=== PATIENT | female | born 1945 | race Native Hawaiian/Other Pacific Islander ===

== ENCOUNTER 2022-04-04 18:53 | Emergency (ER) | payer MEDICARE, OTHER ==
[~2022-04-04] VITALS: Ht 152.4 cm; Wt 70.5 kg
[2022-04-04] MEDS ORDERED: HYDROCODONE/ACETAMINOPHEN 5-325 MG TABLET PO ONE (20:00)
[2022-04-04 20:43] LABS: ANION GAP 14 mmol/L (8-16); CALCIUM, TOTAL 10.3 mg/dL (8.8-10.5); CARBON DIOXIDE 23 mmol/L (22-29); CHLORIDE 95 mmol/L (98-107); CREATININE 1.19 mg/dL (0.60-1.30); GLUCOSE,RANDOM 183 mg/dL (70-110); SODIUM SERUM 132 mmol/L (136-145); UREA NITROGEN, BLOOD 17 mg/dL (7-18)
[2022-04-04 20:46] LABS: GLOMERULAR FILTR. RATE CALC 44 mL/min (>60)
[2022-04-04 20:49] LABS: ALANINE AMINOTRANSFERASE 37 U/L (12-78); ALBUMIN 4.5 g/dL (3.4-5.0); ALKALINE PHOSPHATASE 85 U/L (46-116); ASPARTATE AMINOTRANSFERASE 34 U/L (15-37); BILIRUBIN,TOTAL 0.5 mg/dL (0.1-1.0); TOTAL PROTEIN, SERUM 8.8 g/dL (6.4-8.2)
[2022-04-04 21:10] LABS: BASOPHILS % (AUTO) 0.5 % (0.0-2.0); HEMATOCRIT 38.9 % (36-46); HEMOGLOBIN 13.1 g/dL (12.0-16.0); LYMPHOCYTES # (AUTO) 1.8 K/uL (1.0-4.8); LYMPHOCYTES % (AUTO) 19.1 % (22.0-44.0); MEAN CORPUSCULAR HGB CONC 33.7 G/dL (31.0-37.0); MEAN CORPUSCULAR VOLUME 92 fL (80-100); MONOCYTES # (AUTO) 0.4 K/uL (0.1-1.0); MONOCYTES % (AUTO) 4.7 % (2.0-9.0); NEUTROPHILS # (AUTO) 6.9 K/uL (1.8-7.7); NEUTROPHILS % (AUTO) 74.7 % (40.0-70.0); PLATELET COUNT (AUTO) 284 K/uL (150-450); RED BLOOD CELL COUNT(AUTO) 4.24 MIL/uL (4.00-5.20); RED CELL DISTRIBUTION WIDTH 13.8 % (11.5-14.5)
[2022-04-04 21:49] LABS: AMPHET/METH SCREEN,URINE NEGATIVE (NEGATIVE); BARBITURATE SCREEN, URINE NEGATIVE (NEGATIVE); BENZODIAZEPINES SCREEN,URINE NEGATIVE (NEGATIVE); CANNABINOID SCREEN,URINE NEGATIVE (NEGATIVE); COCAINE SCREEN,URINE NEGATIVE (NEGATIVE); METHADONE SCREEN, URINE NEGATIVE (NEGATIVE); OPIATE SCREEN,URINE NEGATIVE (NEGATIVE); PHENCYCLIDINE SCREEN,URINE NEGATIVE (NEGATIVE)
[2022-04-04] MEDS ORDERED: METOPROLOL SUCCINATE 25 MG ER TABLET PO ONE (23:30)
[2022-04-05] MEDS ORDERED: DICL100G51 TP (00:25)
[2022-04-05 00:26] VITALS: BP 148/98
[2022-04-05] MEDS ORDERED: ACETAMINOPHEN 325 MG TABLET PO ONE (00:30)
[2022-04-05] MEDS ORDERED: TRAM50TA4 PO (22:06)
== END 2022-04-05 00:33 | disposition home or self-care (01) ==
LOC: EMS 18:53
DX: F32.A Depression, unspecified (principal); M19.90 Unspecified osteoarthritis, unspecified site; E11.9 Type 2 diabetes mellitus without complications
CPT/HCPCS: 99285; 80053; 85025; 36415; 73562; 80307; G0480

== ENCOUNTER 2022-04-05 18:04 | Emergency (ER) | payer MEDICARE, OTHER ==
[~2022-04-05] VITALS: Ht 152.4 cm; Wt 59.1 kg
[~2022-04-05 18:04] MED LIST: DICL100G51 TP
[2022-04-05] MEDS ORDERED: TraMADol HCL 50 MG TABLET PO ONE (21:45)
[2022-04-05] MEDS ORDERED: TRAM50TA4 PO (22:06)
[2022-04-05 22:33] VITALS: BP 153/89
== END 2022-04-06 00:31 | disposition home or self-care (01) ==
LOC: EMS 18:19
DX: M17.0 Bilateral primary osteoarthritis of knee (principal); G89.29 Other chronic pain; F41.9 Anxiety disorder, unspecified; E11.9 Type 2 diabetes mellitus without complications; Z91.040 Latex allergy status; Z88.8 Allergy status to other drugs, medicaments and biological substances
CPT/HCPCS: 99283

== ENCOUNTER 2022-06-11 14:49 | Emergency (ER) | payer MEDICARE, OTHER ==
[~2022-06-11] VITALS: Ht 142.2 cm; Wt 68.2 kg
[~2022-06-11 14:49] MED LIST changes: +TRAM50TA4 PO
[2022-06-11 15:03] VITALS: BP 157/90
[2022-06-11] MEDS ORDERED: METF-1211 PO (15:03)
[2022-06-11] MEDS ORDERED: ACET-3385 PO (15:25)
[2022-06-11] MEDS ORDERED: ACETAMINOPHEN 500 MG TABLET PO ONE (15:30)
[2022-06-11] MEDS ORDERED: ATOR40TA28 PO (20:07)
[2022-06-11] MEDS ORDERED: OXYB5TAB20 PO (20:07)
[2022-06-11] MEDS ORDERED: PARO-38 PO (20:07)
[2022-06-11] MEDS ORDERED: LORA-999 PO (20:07)
[2022-06-11] MEDS ORDERED: BUSP10TA23 PO (20:07)
[2022-06-11] MEDS ORDERED: ARIP15TA27 PO (20:07)
[2022-06-11] MEDS ORDERED: NAPR220T57 PO (22:45)
== END 2022-06-11 15:45 | disposition home or self-care (01) ==
LOC: EMS 15:05
DX: M25.562 Pain in left knee (principal); M25.561 Pain in right knee; M19.90 Unspecified osteoarthritis, unspecified site; E11.9 Type 2 diabetes mellitus without complications; I10 Essential (primary) hypertension; Z88.8 Allergy status to other drugs, medicaments and biological substances; Z91.040 Latex allergy status
CPT/HCPCS: 82962; 99282; 99283

== ENCOUNTER 2022-06-11 19:12 | Emergency (ER) | payer MEDICARE, OTHER ==
[~2022-06-11] VITALS: Ht 149.9 cm; Wt 68.2 kg
[~2022-06-11 19:12] MED LIST changes: +ACET-3385 PO; +METF-1211 PO
[2022-06-11] MEDS ORDERED: SODIUM CHLORIDE 0.9% 500 ML IV ONE ×2 (19:45→20:45)
[2022-06-11 19:51] LABS: GLUCOMETER DEV NAME(LOC) ERT.5; GLUCOSE,POINT OF CARE 176 MG/DL (70-110)
[2022-06-11 20:05] LABS: BASOPHILS % (AUTO) 0.3 % (0.0-2.0); EOSINOPHILS % (AUTO) 0.2 % (1.0-6.0); HEMOGLOBIN 11.7 g/dL (12.0-16.0); LYMPHOCYTES # (AUTO) 1.9 K/uL (1.0-4.8); LYMPHOCYTES % (AUTO) 14.9 % (22.0-44.0); MEAN CORPUSCULAR HEMOGLOBIN 31.2 pg (26.0-34.0); MEAN CORPUSCULAR HGB CONC 32.4 G/dL (31.0-37.0); MEAN CORPUSCULAR VOLUME 96 fL (80-100); MONOCYTES # (AUTO) 0.6 K/uL (0.1-1.0); MONOCYTES % (AUTO) 4.4 % (2.0-9.0); NEUTROPHILS # (AUTO) 10.2 K/uL (1.8-7.7); NEUTROPHILS % (AUTO) 80.2 % (40.0-70.0); PLATELET COUNT (AUTO) 309 K/uL (150-450); RED BLOOD CELL COUNT(AUTO) 3.75 MIL/uL (4.00-5.20); RED CELL DISTRIBUTION WIDTH 14.5 % (11.5-14.5)
[2022-06-11] MEDS ORDERED: LORA-999 PO (20:07)
[2022-06-11] MEDS ORDERED: OXYB5TAB20 PO (20:07)
[2022-06-11] MEDS ORDERED: ARIP15TA27 PO (20:07)
[2022-06-11] MEDS ORDERED: PARO-38 PO (20:07)
[2022-06-11] MEDS ORDERED: BUSP10TA23 PO (20:07)
[2022-06-11] MEDS ORDERED: ATOR40TA28 PO (20:07)
[2022-06-11 20:14] LABS: ANION GAP 14 mmol/L (8-16); CALCIUM, TOTAL 9.1 mg/dL (8.8-10.5); CARBON DIOXIDE 24 mmol/L (22-29); CHLORIDE 95 mmol/L (98-107); CREATININE 1.21 mg/dL (0.60-1.30); GLUCOSE,RANDOM 186 mg/dL (70-110); POTASSIUM 3.9 mmol/L (3.5-5.1); SODIUM SERUM 133 mmol/L (136-145); UREA NITROGEN, BLOOD 15 mg/dL (7-18)
[2022-06-11 20:16] LABS: COVID AG,FIA SOURCE NASOPHARYNGEAL
[2022-06-11 20:18] LABS: APPEARANCE,URINE CLEAR (CLEAR); BILIRUBIN,URINE NEGATIVE (NEGATIVE); GLUCOSE, URINE (UA) NEGATIVE (NEGATIVE); KETONES,URINE TRACE mg/dL (NEGATIVE); LEUKOCYTE ESTERASE ,URINE NEGATIVE (NEGATIVE); NITRATE,URINE NEGATIVE (NEGATIVE); OCCULT BLOOD,URINE TRACE (NEGATIVE); PROTEIN,URINE NEGATIVE (NEGATIVE); SPECIFIC GRAVITIY, URINE 1.008 (1.003-1.030); UROBILINOGEN,URINE <=1.0 mg/dL (<=1.0)
[2022-06-11 20:21] LABS: INR 0.9 (0.9-1.1); PROTHROMBIN TIME 10.1 SEC (9.4-11.6)
[2022-06-11 20:22] LABS: AMMONIA 30 umol/L (11-32)
[2022-06-11 20:23] LABS: AMPHET/METH SCREEN,URINE NEGATIVE (NEGATIVE); BARBITURATE SCREEN, URINE NEGATIVE (NEGATIVE); BENZODIAZEPINES SCREEN,URINE NEGATIVE (NEGATIVE); CANNABINOID SCREEN,URINE NEGATIVE (NEGATIVE); COCAINE SCREEN,URINE NEGATIVE (NEGATIVE); METHADONE SCREEN, URINE NEGATIVE (NEGATIVE); OPIATE SCREEN,URINE NEGATIVE (NEGATIVE)
[2022-06-11 20:24] LABS: B-TYPE NATRIURETIC PEPTIDE 52 pg/mL (0-100)
[2022-06-11 20:26] LABS: PHENCYCLIDINE SCREEN,URINE NEGATIVE (NEGATIVE)
[2022-06-11 20:26] LABS: GLOMERULAR FILTR. RATE CALC 43 mL/min (>60)
[2022-06-11 20:29] LABS: LACTIC ACID 7.8 mmol/L (0.4-2.0)
[2022-06-11] MEDS ORDERED: SODIUM CHLORIDE 0.9% 1,000 ML IV ONE (20:30)
[2022-06-11 20:33] LABS: ALANINE AMINOTRANSFERASE 25 U/L (12-78); ALBUMIN 3.7 g/dL (3.4-5.0); ALKALINE PHOSPHATASE 98 U/L (46-116); ASPARTATE AMINOTRANSFERASE 25 U/L (15-37); BILIRUBIN,TOTAL 0.2 mg/dL (0.1-1.0); CREATINE KINASE, TOTAL ONLY 217 U/L (26-192); PHOSPHORUS 2.9 mg/dL (2.5-4.9); TOTAL PROTEIN, SERUM 7.7 g/dL (6.4-8.2)
[2022-06-11 20:35] LABS: BACTERIA,URINE None Seen /HPF (None Seen); RBC,URINE 0-2 /HPF (0-2); WBC,URINE None Seen /HPF (0-5)
[2022-06-11 20:37] LABS: SALICYLATE 8.7 mg/dL (2.8-20.0)
[2022-06-11] MEDS ORDERED: LORazepam 2 MG/ML VIAL IVP ONE (20:45)
[2022-06-11] MEDS ORDERED: ONDANSETRON HCL 4 MG/2 ML VIAL IVP PRN ×2 (22:45→23:15)
[2022-06-11] MEDS ORDERED: NAPR220T57 PO (22:45)
[2022-06-11] MEDS ORDERED: 0.9% SODIUM CHLORIDE 10 ML SYRINGE IVP PRN (22:45)
[2022-06-11] MEDS ORDERED: ACETAMINOPHEN 325 MG TABLET PO PRN ×2 (22:45→23:15)
[2022-06-11] MEDS ORDERED: ZOLPIDEM TARTRATE 5 MG TABLET PO PRN (23:15)
[2022-06-11] MEDS ORDERED: MORPHINE SULFATE 2 MG/ML SYRINGE IVP PRN (23:15)
[2022-06-11] MEDS ORDERED: MAGNESIUM HYDROXIDE SUSPENSION 30 ML UDCUP PO PRN (23:15)
[2022-06-11] MEDS ORDERED: ALBUTEROL SULFATE 2.5 MG/0.5 ML NEB SOLUTION NEB PRN (23:15)
[2022-06-11] MEDS ORDERED: IPRATROPIUM BROMIDE 0.5 MG/2.5 ML NEB SOLUTION NEB PRN (23:15)
[2022-06-11] MEDS ORDERED: HYDROCODONE/ACETAMINOPHEN 5-325 MG TABLET PO PRN (23:15)
[2022-06-11] MEDS ORDERED: BISACODYL 10 MG RECTAL RECTAL SUPPOSITORY PR PRN (23:15)
[2022-06-12 04:51] LABS: BASOPHILS % (AUTO) 0.5 % (0.0-2.0); EOSINOPHILS % (AUTO) 2.7 % (1.0-6.0); HEMATOCRIT 30.5 % (36-46); HEMOGLOBIN 10.2 g/dL (12.0-16.0); LYMPHOCYTES % (AUTO) 25.2 % (22.0-44.0); MEAN CORPUSCULAR HEMOGLOBIN 31.7 pg (26.0-34.0); MEAN CORPUSCULAR HGB CONC 33.3 G/dL (31.0-37.0); MEAN CORPUSCULAR VOLUME 95 fL (80-100); MONOCYTES # (AUTO) 0.5 K/uL (0.1-1.0); MONOCYTES % (AUTO) 6.3 % (2.0-9.0); NEUTROPHILS # (AUTO) 5.1 K/uL (1.8-7.7); NEUTROPHILS % (AUTO) 65.3 % (40.0-70.0); PLATELET COUNT (AUTO) 250 K/uL (150-450); RED BLOOD CELL COUNT(AUTO) 3.21 MIL/uL (4.00-5.20); RED CELL DISTRIBUTION WIDTH 14.2 % (11.5-14.5)
[2022-06-12 05:04] LABS: ALANINE AMINOTRANSFERASE 19 U/L (12-78); ALBUMIN 2.9 g/dL (3.4-5.0); ALKALINE PHOSPHATASE 76 U/L (46-116); ANION GAP 4 mmol/L (8-16); ASPARTATE AMINOTRANSFERASE 22 U/L (15-37); BILIRUBIN,TOTAL 0.3 mg/dL (0.1-1.0); CALCIUM, TOTAL 8.2 mg/dL (8.8-10.5); CARBON DIOXIDE 29 mmol/L (22-29); CHLORIDE 105 mmol/L (98-107); CREATININE 0.87 mg/dL (0.60-1.30); GLUCOSE,RANDOM 189 mg/dL (70-110); POTASSIUM 3.6 mmol/L (3.5-5.1); SODIUM SERUM 138 mmol/L (136-145); UREA NITROGEN, BLOOD 13 mg/dL (7-18)
[2022-06-12 05:12] LABS: GLOMERULAR FILTR. RATE CALC > 60 mL/min (>60)
[2022-06-12] MEDS: HEPARIN SODIUM,PORCINE 5,000 UNITS/ML VIAL SQ SCH ×2 (08:45→08:46)
[2022-06-12] MEDS ORDERED: PANTOPRAZOLE SODIUM 40 MG/VIAL IVP SCH (09:00)
[2022-06-12] MEDS ORDERED: OXYBUTYNIN CHLORIDE 5 MG TABLET PO SCH (09:00)
[2022-06-12] MEDS ORDERED: ATORVASTATIN CALCIUM 40 MG TABLET PO SCH (09:00)
[2022-06-12 14:30] VITALS: BP 121/73
== END 2022-06-12 15:41 | disposition home or self-care (01) ==
LOC: EMS 19:13
DX: G93.40 Encephalopathy, unspecified (principal); R74.02 Elevation of levels of lactic acid dehydrogenase [LDH]; E11.9 Type 2 diabetes mellitus without complications; I10 Essential (primary) hypertension; M19.90 Unspecified osteoarthritis, unspecified site; Z20.822 Contact with and (suspected) exposure to COVID-19
CPT/HCPCS: 99285; 70551; 96374; 96361; 71045; 87426; 81001; 82140; 82550; 82962; 83605; 83735; 83880; 84100; 84484; 85025; 85610; 85730; 93005; 80307; 70450; 96375; 96372; 80053; 36415; J2060; C9113; J1644; G0480 ×2; G0481; J7040

== ENCOUNTER 2022-06-13 18:41 | Emergency (ER) | payer MEDICARE, OTHER ==
[~2022-06-13] VITALS: Ht 157.5 cm; Wt 70.5 kg
[~2022-06-13 18:41] MED LIST changes: +ARIP15TA27 PO; +ATOR40TA28 PO; +BUSP10TA23 PO; -DICL100G51 TP; +LORA-999 PO; +NAPR220T57 PO; +OXYB5TAB20 PO; +PARO-38 PO
[2022-06-13] MEDS ORDERED: TraMADol HCL 50 MG TABLET PO ONE (22:45)
[2022-06-13 23:10] VITALS: BP 138/83
== END 2022-06-13 23:23 | disposition home or self-care (01) ==
LOC: EMS 18:41
DX: M25.562 Pain in left knee (principal); M25.561 Pain in right knee; M19.90 Unspecified osteoarthritis, unspecified site; E11.9 Type 2 diabetes mellitus without complications; I10 Essential (primary) hypertension; Z76.0 Encounter for issue of repeat prescription; Z91.040 Latex allergy status; Z88.6 Allergy status to analgesic agent
CPT/HCPCS: 99283

== ENCOUNTER 2022-06-17 16:16 | Emergency (ER) | payer MEDICARE, OTHER ==
[~2022-06-17] VITALS: Ht 152.4 cm; Wt 68.2 kg
[2022-06-17] MEDS ORDERED: ACETAMINOPHEN 500 MG TABLET PO ONE (20:30)
[2022-06-17 20:40] LABS: BASOPHILS % (AUTO) 0.9 % (0.0-2.0); HEMATOCRIT 41.1 % (36-46); HEMOGLOBIN 13.6 g/dL (12.0-16.0); LYMPHOCYTES % (AUTO) 18.7 % (22.0-44.0); MEAN CORPUSCULAR HEMOGLOBIN 31.8 pg (26.0-34.0); MEAN CORPUSCULAR VOLUME 96 fL (80-100); MONOCYTES # (AUTO) 0.6 K/uL (0.1-1.0); MONOCYTES % (AUTO) 5.3 % (2.0-9.0); NEUTROPHILS # (AUTO) 7.7 K/uL (1.8-7.7); NEUTROPHILS % (AUTO) 71.1 % (40.0-70.0); PLATELET COUNT (AUTO) 350 K/uL (150-450); RED BLOOD CELL COUNT(AUTO) 4.27 MIL/uL (4.00-5.20); RED CELL DISTRIBUTION WIDTH 14.4 % (11.5-14.5)
[2022-06-17 20:49] LABS: CALCIUM, TOTAL 10.6 mg/dL (8.8-10.5); CREATININE 1.04 mg/dL (0.60-1.30)
[2022-06-17 22:05] VITALS: BP 119/73
== END 2022-06-17 22:30 | disposition still patient (30) ==
LOC: EMS 16:17
DX: R06.00 Dyspnea, unspecified (principal); M17.0 Bilateral primary osteoarthritis of knee; E11.9 Type 2 diabetes mellitus without complications; I10 Essential (primary) hypertension
CPT/HCPCS: 71045; 80048; 84484; 85025; 93005; 99285; 36415-L1; 36415-TC

== ENCOUNTER 2022-06-18 20:07 | Emergency (ER) | payer MEDICARE, OTHER ==
[~2022-06-18] VITALS: Ht 152.4 cm; Wt 68.2 kg
[2022-06-18 21:00] VITALS: BP 148/89
[2022-06-18] MEDS ORDERED: KETOROLAC TROMETHAMINE 30 MG/ML VIAL IM ONE (22:15)
[2022-06-18] MEDS ORDERED: ACETAMINOPHEN 325 MG TABLET PO ONE (23:00)
[2022-06-18] MEDS ORDERED: ACETAMINOPHEN 325 MG TABLET ONE (23:04)
== END 2022-06-18 22:55 | disposition home or self-care (01) ==
LOC: EMS 20:10
DX: M25.562 Pain in left knee (principal); M25.561 Pain in right knee; M19.90 Unspecified osteoarthritis, unspecified site; E11.9 Type 2 diabetes mellitus without complications; I10 Essential (primary) hypertension; Z91.040 Latex allergy status; Z88.6 Allergy status to analgesic agent
CPT/HCPCS: 99283; 96372; J1885

== ENCOUNTER 2022-06-19 01:15 | Emergency (ER) | payer MEDICARE, OTHER ==
[~2022-06-19] VITALS: Ht 152.4 cm; Wt 68.0 kg
[2022-06-19 01:28] VITALS: BP 140/86
== END 2022-06-19 05:00 | disposition left against medical advice (07) ==
LOC: EMS 01:15
DX: Z53.21 Procedure and treatment not carried out due to patient leaving prior to being seen by health care provider (principal)